=== PATIENT | male | born 1975 | race Caucasian/White ===

== ENCOUNTER → 2022-01-12 | Outpatient (CLI) | payer OTHER ==
--- NOTE | 2022-01-12 14:38 | Diagnostic Imaging Report ---
HISTORY: Bilateral knee pain TECHNIQUE: 2 views of the bilateral knees COMPARISON: None FINDINGS: No acute fracture or dislocation is seen in the bilateral knees. Alignment appears normal. Joint spaces are preserved. There is a 9 mm joint body at the anterior right knee. There is no significant joint effusion. IMPRESSION: 1. Joint body in the right knee. No acute osseous abnormality is seen in the bilateral knees. Dictated by: Dictated on workstation # [id number]
== END ==
LOC: RAD FS 10:11
PROVIDERS: ATTEND Nurse Practitioner
DX: M25.561 Pain in right knee (principal); M25.562 Pain in left knee

== ENCOUNTER → 2022-02-14 | Outpatient (CLI) | payer OTHER ==
--- NOTE | 2022-02-14 12:43 | Diagnostic Imaging Report ---
INDICATION: Right ankle pain AP, oblique and lateral views of the right ankle are obtained. There is extensive swelling surrounding the ankle however no fracture or malalignment is identified. There is no lytic or sclerotic lesion. Posterior and plantar calcaneal enthesophytes are noted. IMPRESSION: Ankle swelling without acute osseous abnormality identified. Dictated by: Dictated on workstation # [id number]
== END ==
LOC: RAD FS 11:28
PROVIDERS: ATTEND Nurse Practitioner
DX: Z01.89 Encounter for other specified special examinations (principal); M25.471 Effusion, right ankle; M25.571 Pain in right ankle and joints of right foot
CPT/HCPCS: 73610

== ENCOUNTER 2022-02-23 17:01 | Emergency (ER) | payer OTHER ==
[~2022-02-23] VITALS: Ht 180 cm; Wt 158.0 kg
[2022-02-23] MEDS ORDERED: AMOX1TAB12 PO ×2 (17:19→18:15)
--- NOTE | 2022-02-23 17:20 | ED EENT ---
History of Present Illness General Chief Complaint: Eye Problems Stated Complaint: L EYE SWELLING/PAIN Source: patient History of Present Illness Date Seen by Provider: Feb 23, 2022 Time Seen by Provider: 17:03 Initial Comments 46-year-old male presenting with complaints of pain to the left ear since Sunday. He started having eyelid swelling on the left yesterday. He has a history of recurrent ear infections and had to have tubes as a child. He has had ruptured eardrums due to infection in the past. He states usually when he gets an ear infection it comes on fast and is severe. [facility] and they told him to come to the emergency department. He has no redness to his left eye but he does have some swelling to the left eyelid. He denies any change in his vision. Timing/Duration: abrupt Severity: moderate Location: eye (L) (Eyelid swelling), ear (L) (Pain and pressure) Prearrival Treatment: over the counter meds Associated Symptoms: change in hearing (Decreased hearing from the left); No cough, No drooling, No ear drainage, No facial pain/swelling, No fever, No malaise, No nasal congestion/drainage, No poor fluid intake, No poor solids intake, No sinus infection, No sore throat, No tooth pain, No voice change Allergies and Home Medications Patient Home Medication List Home Medication List Reviewed: Yes Amoxicillin/Potassium Clav (Amox Tr-K Clv 875-125 mg Tab) 875 Mg-125 Mg Tablet, 1 EACH PO BID Prescribed by: JACKELYN JAIME on 02/23/22 1652 Review of Systems Review of Systems Constitutional: No chills, No fever Eyes: See HPI; Denies Blurred Vision, Denies Drainage, Denies Photophobia, Denies Vision Changes Ears: Pain (Left ear); Denies Tinnitus, Denies Bloody Discharge, Denies Clear Discharge, Denies Purulent Discharge, Denies Serosanguinous Discharge; Previous Injury (History of prior tubes and ruptured eardrums) Nose: no symptoms reported Mouth: no symptoms reported Throat: no symptoms reported Respiratory: no symptoms reported Cardiovascular: no symptoms reported Gastrointestinal: no symptoms reported Musculoskeletal: no symptoms reported Skin: no symptoms reported Neurological: No Symptoms Reported Hematologic/Lymphatic: No Symptoms Reported Past Stwytyq-Pjjlyo-Fnuihk Hx Patient Social History Tobacco Use?: Yes Tobacco type used: Cigarettes Smoking Status: Current Everyday Smoker Substance use?: No Alcohol Use?: Yes Past Medical History Surgery/Hospitalization HX: Recurrent otitis media with history of prior rupture and tympanostomy tubes, hypertension, obesity, palpitations Physical Exam Height, Weight, BMI Height: '" Weight: lbs. oz. kg; BMI Method: General Appearance: no apparent distress, obese Eyes: left eye lid inflammation (Mild redness and swelling to the left upper eyelid); bilateral eye PERRL, bilateral eye EOMI Ears: right ear other (Scarring to the right TM from prior ruptures and tympanostomy tubes); left ear tenderness, left ear TM dull (TM is dull with scarring and there is purulent drainage present behind his TM.), left ear TM bulging; bilateral ear auricle normal, bilateral ear canal normal Neck: non-tender, full range of motion, supple, normal inspection Cardiovascular: normal peripheral pulses, regular rate, rhythm Respiratory: chest non-tender, lungs clear, normal breath sounds, no respiratory distress, no accessory muscle use Neurologic/Psychiatric: alert, oriented x 3 Progress/Results/Core Measures Progress Progress Note : Progress Note With him having purulent drainage behind his left TM we will start him on Augmentin and hopefully prevent rupture of his TM. If there is some infection or stye with the left upper eyelid the antibiotic should also help with that. Encouraged to try alternating ice and heat to the eyelid as well. [facility] Departure Impression Primary Impression: Acute otitis media with effusion of left ear Additional Impression: Pain and swelling of eyelid of left eye Disposition: 01 HOME, SELF-CARE Condition: Stable Departure-Patient Inst. Decision time for Depature: 17:18 Referrals: LINDY BONNER (PCP/Family) Primary Care Physician Patient Instructions: Ear Infections (Otitis Media) in Adults (DC), Stye (DC) Add. Discharge Instructions: Take the full course of antibiotics to treat for ear infection and possible infection and swelling of your eyelid. Check back through the clinic if continuing to have problems or if not improving. All discharge instructions reviewed with patient and/or family. Voiced understanding. Scripts Amoxicillin/Potassium Clav (Amox Tr-K Clv 875-125 mg Tab) 875 Mg-125 Mg Tablet 1 EACH PO BID for Otitis Media for 10 Days, #20 TAB 0 Refills Prov: ENYART,JACKELYN E MD 02/23/22 JACKELYN JAIME MD Feb 23, 2022 17:20
[2022-02-23 17:27] VITALS: BP 130/97
== END 2022-02-23 17:27 | disposition home or self-care (01) ==
LOC: EDUNIT# 17:01 → ER FS 17:03
DX: H57.89 Other specified disorders of eye and adnexa (principal); H57.12 Ocular pain, left eye; H65.192 Other acute nonsuppurative otitis media, left ear; F17.210 Nicotine dependence, cigarettes, uncomplicated; Z96.22 Myringotomy tube(s) status; Z28.310 Unvaccinated for COVID-19
CPT/HCPCS: 99282